=== PATIENT | male | born 1990 | race African-American/Black ===

== ENCOUNTER 2018-10-18 09:06 | Emergency (ER) | payer OTHER ==
[~2018-10-18] VITALS: Ht 223.5 cm; Wt 95.0 kg
[2018-10-18] MEDS ORDERED: SODIUM CHLORIDE 0.9% 1,000 ML IV ONE (09:50)
[2018-10-18 10:11] LABS: BASOPHILS % 0.8 % (0.0-2.0); EOSINOPHILS % 0.8 % (0.0-5.0); LYMPHOCYTES % 30.6 % (20.0-50.0); MEAN CORPUSCULAR HEMOGLOBIN 28.2 pg (28.0-32.0); MEAN CORPUSCULAR VOLUME 84.8 fL (80.0-94.0); MEAN PLATELET VOLUME 8.9 fl (7.4-10.4); MONOCYTES % 9.2 % (2.0-8.0); NEUTROPHILS % 58.6 % (40.0-76.0); PLATELET 222 x1000/uL (130-400)
[2018-10-18 10:19] LABS: CHLORIDE 108 mEq/L (98-107)
[2018-10-18 12:15] VITALS: BP 137/90
== END 2018-10-18 13:44 | disposition home or self-care (01) ==
LOC: ER 09:06
DX: R55 Syncope and collapse (principal); R42 Dizziness and giddiness; Z88.8 Allergy status to other drugs, medicaments and biological substances
CPT/HCPCS: 36415; 70450; 71045; 80053; 83880; 84484; 85025; 93005; 96360; 96361; 99284; J7030